=== PATIENT | female | born 1950 | race Caucasian/White ===

== ENCOUNTER 2019-09-30 11:12 | Outpatient (CLI) | payer MEDICARE, SELFPAY ==
--- NOTE | 2019-10-03 17:26 | ONC FU_ITS ---
Dr. Campbell Patient Follow-Up Note Patient: Corine Colon Unit #: [id number]: 1950 Dicatated By: Petr Campbell M.D.Date of Visit:Sep 30, 2019 Onc Med Follow-up/Prog Note Chief Complaint: Pulmonary embolism. History of Present Illness: This is a 69 year-old woman who had of a major episode of pulmonary embolism. On 2017 she had presented to the emergency room at [facility] with fatigue, shortness of breath, and chest pain. In retrospect, she believes the symptoms had worsened gradually over a period of several months. In any case, her chest x-ray showed findings which were worrisome for possible aneurysm of the descending thoracic aorta. A subsequent CT angiogram of the chest showed evidence of acute pulmonary embolism involving all lobes of the lungs. There was evidence of associated right heart strain. The descending thoracic aorta was noted to be tortuous but without evidence of aortic aneurysm. She began anticoagulation with Lovenox and she was then transferred to [facility] for admission. Her further evaluation included echocardiogram which showed normal left ventricular size and systolic function with estimated ejection fraction 55%. There was grade 1/4 diastolic dysfunction. There was mildly dilated right atrium and right ventricle with slightly diminished right internal ejection fraction. There was evidence of pulmonary hypertension with estimated pulmonary artery peak systolic pressure 42 mmHg. Bilateral lower extremity venous Doppler studies showed no evidence of deep vein thrombosis. She improved clinically on Lovenox and she was discharged home on a apixaban 10 mg twice a day, subsequently decreased to 5 mg twice a day. Her anticoagulation was subsequently transitioned to rivaroxaban 20 mg daily. I had seen her initially on 03/20/2018. In reviewing her history, she had no identifiable risk factors for thromboembolism. In the setting of an unprovoked episode of major thromboembolism, I had recommended that she continue long-term anticoagulation. She was very interested in pursuing further evaluation for any possible underlying cause for the thrombosis. As such, I did order a thrombophilia evaluation, which was unrevealing. A repeat CT pulmonary angiogram on 05/31/2018 showed only a trace of old pulmonary emboli within the peripheral pulmonary arterial tree to the superior segment of the right lower lobe. There were no apparent new emboli noted. With that study, I had also intended to include the abdomen/pelvis to scan for possible underlying malignancy, but for some reason that didn't get ordered. As of her follow-up visit on 07/02/2018, she appeared stable clinically. She continued anticoagulation with rivaroxaban 20 mg daily. Her other medical illnesses have been limited to hypertension and degenerative arthritis. She underwent right total hip arthroplasty in March 2019. She had no complications with that procedure. She has only a minimal prior smoking history. She quit in 1970. She is seen for a follow-up visit. She has had somewhat limited activity following her hip surgery, but it is getting better. She is planning to have her left hip replaced sometime this year. Her ECOG score is 1. She has good appetite. She has gained weight. She does not have fever. She occasionally has hot flashes at night. She reports having occasional cough. She has no shortness of breath or chest pain. She has no GI/ complaints other than she has been voiding a little more frequently. She has had a good outcome with her right hip surgery. She does have pain in her left hip, she also has some back pain. She does not complain of headache. She has some orthostatic lightheadedness. She has had some numbness in her right hand. She indicates that she recently suffered a mild concussion from a horse related injury. She has had no adverse effects from that. Medications: Xarelto 1 Tablet (of 20 mg) Oral daily Allergies: perfumes Review of Systems: Constitutional - She generally feels good. Her energy is better, but she still has restricted activity. She is able to do light work in and around the house. Appetite is good and her weight is up about 6 pounds. No fever. She has occasional hot flashes at night. ECOG score is 1, ENMT - She has seasonal allergies. No mouth sores. No sore throat or difficulty swallowing, Hematologic/Lymphatic - No abnormal bruising or bleeding, Respiratory - No shortness of breath. No cough. No pleuritic pain or hemoptysis, Cardiovascular - No angina pain. No palpitations, Gastrointestinal - No nausea or vomiting. No heartburn or acid reflux. No diarrhea or constipation. No blood in the stool or black stools, Genitourinary (F) - No dysuria or hematuria. She has urinary frequency during the day. No urgency or incontinence, Musculoskeletal - She has left hip and lower back pain, which is chronic for her. She is planning to have left hip replacement sometime this year, Integumentary - No skin complications, Neurologic - No headache. She has dizziness with positional changes. She has numbness and tingling in her right hand, which she attributes to carpal tunnel. She recently suffered a mild concussion. Those symptoms have completely resolved. She has no other focal neurologic symptoms, Psychiatric - No anxiety or depression. No insomnia. Vital Signs: Performed on Sep 30, 2019 10:31 Height - 65.00 in Weight - 167 lbs (HIGH) BSA - 1.83 sq.m BMI - 27.79 Temperature - 97.7 F (LOW) Pulse - 62 /min Respiration - 15 /min BP - 140/80 mm(hg) O2 Sat - 98 % Pain - 3 Physical Examination: Constitutional - She looks good generally, Eyes - Sclerae nonicteric. Conjunctivae clear, ENMT - No lesions noted in the oral cavity, Hematologic/Lymphatic - No cervical, clavicular, or axillary adenopathy, Respiratory - Lungs are clear with good air movement bilaterally, Cardiovascular - Heart rhythm is regular. There is no murmur, gallop, or rub noted, Abdomen - Soft and non-tender. Liver and spleen are not enlarged. There is no abdominal mass or ascites noted and there is no inguinal adenopathy, Extremities - No edema, Neurologic - No focal neurologic deficits noted. Impression: 1. Patient with major episode of pulmonary embolism diagnosed in 03/07/2018. There was associated right heart strain. This appears to have been unprovoked. 2. She has had significant improvement on anticoagulation, currently with rivaroxaban. Her repeat CT pulmonary angiogram showed only minimal residual emboli. 3. Her thrombophilia evaluation was unrevealing. 4. She appears to be mildly hypertensive, and she has been having occasional episodes of fast heart rate. 5. She has underlying degenerative arthritis. She has continued anticoagulation with rivaroxaban 20 mg daily. In March she underwent right total hip arthroplasty. She had no complications with that procedure. Overall, she has been doing well clinically. Plan: With unprovoked thromboembolism, she is advised to continue long-term anticoagulation. We discussed whether or not to reduce the rivaroxaban to a maintenance dosage. At least for the time being, if she is having no adverse effects with the rivaroxaban, I would recommend continuing it at the full dosage of 20 mg daily. She can call if she is having any problems with it. Otherwise I will just plan to see her for a follow-up visit in 1 year. Signed By: Petr Campbell M.D. <<Signature on File>>
== END 2019-09-30 11:13 | disposition home or self-care (01) ==
LOC: ONCMED 11:12
PROVIDERS: PCP Physician Assistant Medical; Visit Provider Internal Medicine Medical Oncology
DX: I26.09 Other pulmonary embolism with acute cor pulmonale (principal); Z79.01 Long term (current) use of anticoagulants; M19.90 Unspecified osteoarthritis, unspecified site
CPT/HCPCS: 99214

== ENCOUNTER 2020-03-01 15:08 | Outpatient (CLI) | payer MEDICARE, SELFPAY ==
--- NOTE | 2020-03-01 15:22 | XR_ITS ---
WS: [id number] Exam: XR DEXA axial skeleton* [id number] Date/Time of Exam: 03/01/2020 3:25 PM Reason For Exam: ASYMPTOMATIC MENOPAUSAL STATE DEXA BONE DENSITOMETRY NanoVasc The L1-L4 bone mineral density measures 1.293 g/cm2. This corresponds to a T score of 0.9 and Z score of 2.5. The T score bone mineral density for the radius is 0.0, Z score is 1.8. XR/XR DEXA axial skeleton* [id number] IMPRESSION: Bone mineral density lies in the normal range. No osteopenia is observed at th is time. Refer to detailed summary.
== END 2020-03-01 15:09 | disposition home or self-care (01) ==
PROVIDERS: PCP Physician Assistant Medical; Visit Provider Family Medicine
DX: Z78.0 Asymptomatic menopausal state (principal)
CPT/HCPCS: 77080

== ENCOUNTER 2020-09-28 10:00 | Outpatient (CLI) | payer MEDICARE, SELFPAY ==
--- NOTE | 2020-10-01 07:03 | ONC FU_ITS ---
Dr. Campbell Patient Follow-Up Note Patient: Corine Colon Unit #: [id number]: 1950 Dicatated By: Petr Campbell M.D.Date of Visit:Sep 28, 2020 Onc Med Follow-up/Prog Note Chief Complaint: Pulmonary embolism. History of Present Illness: This is a 70 year-old woman who had of a major episode of pulmonary embolism. On 2017 she had presented to the emergency room at [facility] with fatigue, shortness of breath, and chest pain. In retrospect, she believes the symptoms had worsened gradually over a period of several months. In any case, her chest x-ray showed findings which were worrisome for possible aneurysm of the descending thoracic aorta. A subsequent CT angiogram of the chest showed evidence of acute pulmonary embolism involving all lobes of the lungs. There was evidence of associated right heart strain. The descending thoracic aorta was noted to be tortuous but without evidence of aortic aneurysm. She began anticoagulation with Lovenox and she was then transferred to [facility] for admission. Her further evaluation included echocardiogram which showed normal left ventricular size and systolic function with estimated ejection fraction 55%. There was grade 1/4 diastolic dysfunction. There was mildly dilated right atrium and right ventricle with slightly diminished right internal ejection fraction. There was evidence of pulmonary hypertension with estimated pulmonary artery peak systolic pressure 42 mmHg. Bilateral lower extremity venous Doppler studies showed no evidence of deep vein thrombosis. She improved clinically on Lovenox and she was discharged home on a apixaban 10 mg twice a day, subsequently decreased to 5 mg twice a day. Her anticoagulation was subsequently transitioned to rivaroxaban 20 mg daily. I had seen her initially on 03/20/2018. In reviewing her history, she had no identifiable risk factors for thromboembolism. In the setting of an unprovoked episode of major thromboembolism, I had recommended that she continue long-term anticoagulation. She was very interested in pursuing further evaluation for any possible underlying cause for the thrombosis. As such, I did order a thrombophilia evaluation, which was unrevealing. A repeat CT pulmonary angiogram on 05/31/2018 showed only a trace of old pulmonary emboli within the peripheral pulmonary arterial tree to the superior segment of the right lower lobe. There were no apparent new emboli noted. With that study, I had also intended to include the abdomen/pelvis to scan for possible underlying malignancy, but for some reason that didn't get ordered. As of her follow-up visit on 07/02/2018, she appeared stable clinically. She continued anticoagulation with rivaroxaban 20 mg daily. Her other medical illnesses have been limited to hypertension and degenerative arthritis. She underwent right total hip arthroplasty in March 2019. She had no complications with that procedure. She has only a minimal prior smoking history. She quit in 1970. She is seen for a follow-up visit. She has been feeling good generally. Some days she does feel tired, but she has normal activity. ECOG score 0. She has good appetite. She has no fever, night sweats, or hot flashes. She has some allergy related symptoms, mainly sneezing. She has no shortness of breath, cough, or chest pain. Recently she has started having indigestion. She says she has been prone to having heartburn her entire life. Bowel function has been okay. She has frequent urination. She says her joints have been pretty good. She has arthritis, but not much pain. She does not complain of headache or dizziness. She has some carpal tunnel symptoms in her right hand, which she manages with the brace at night. She has no other focal neurologic symptoms. Medications: Xarelto 1 Tablet (of 20 mg) Oral daily Allergies: perfumes Vital Signs: Performed on Sep 28, 2020 09:58 Height - 65.00 in Weight - 165 lbs (LOW) BSA - 1.82 sq.m BMI - 27.46 Temperature - 98.2 F (LOW) Pulse - 65 /min Respiration - 16 /min BP - 150/70 mm(hg) (HIGH) O2 Sat - 97 % Pain - 0 Physical Examination: Constitutional - She looks good generally, Eyes - Sclerae nonicteric. Conjunctivae clear, ENMT - No lesions noted in the oral cavity, Hematologic/Lymphatic - No cervical, clavicular, or axillary adenopathy, Respiratory - Lungs are clear with good air movement bilaterally, Cardiovascular - Heart rhythm is regular. There is no murmur, gallop, or rub noted, Abdomen - Soft. Liver and spleen are not enlarged. There is no abdominal mass or ascites noted and there is no inguinal adenopathy, Extremities - No edema, Neurologic - No focal neurologic deficits noted. Problem List: 1. Patient with major episode of pulmonary embolism diagnosed in 03/07/2018. There was associated right heart strain. This appeared to have been unprovoked. 2. Degenerative arthritis. 3. GERD. Problems Addressed with this Encounter and Plan: 1. Patient with major episode of pulmonary embolism diagnosed in 03/07/2018. There was associated right heart strain. This appeared to have been unprovoked. She has had significant improvement on anticoagulation, currently with rivaroxaban. Her repeat CT pulmonary angiogram showed only minimal residual emboli. Her thrombophilia evaluation was unrevealing. With unprovoked thromboembolism, she was advised to continue long-term anticoagulation. During follow-up she has been doing well clinically, thus far with no evidence for any recurrence of thromboembolism. As it has now been more than 2 years since the initial episode, I talked her about the possibility of transitioning to the maintenance dose of rivaroxaban at 10 mg daily. She is agreeable only we will make the change with her next prescription refill. I will just plan a follow-up visit in 1 year. 2. She recently has had recurrence of GERD symptoms. As she is on chronic anticoagulation, I will have her start famotidine 20 mg twice daily. If symptoms improve she can reduce to 20 mg daily. She is to let me know if it is not getting better. Signed By: Petr Campbell M.D. <<Signature on File>>
== END 2020-09-28 10:01 | disposition home or self-care (01) ==
PROVIDERS: PCP Physician Assistant Medical; Visit Provider Internal Medicine Medical Oncology
DX: I26.99 Other pulmonary embolism without acute cor pulmonale (principal); M19.90 Unspecified osteoarthritis, unspecified site; K21.9 Gastro-esophageal reflux disease without esophagitis; Z79.01 Long term (current) use of anticoagulants; Z79.899 Other long term (current) drug therapy
CPT/HCPCS: 99214

== ENCOUNTER 2021-11-21 14:21 | Oncology outpatient (recurring) (ONCR) | payer MEDICARE, SELFPAY | END 2021-12-14 23:59 | disposition home or self-care (01) | PROVIDERS: PCP Physician Assistant Medical; Visit Provider Internal Medicine Medical Oncology | DX: Z09 Encounter for follow-up examination after completed treatment for conditions other than malignant neoplasm (principal); Z86.718 Personal history of other venous thrombosis and embolism; Z79.01 Long term (current) use of anticoagulants | CPT/HCPCS: 99214; G0463 ==

== ENCOUNTER 2022-11-03 12:11 | Outpatient (CLI) | payer MEDICARE, SELFPAY ==
--- NOTE | 2022-11-03 12:20 | MM_ITS ---
WS: [id number] VIEWS: MLO and CC views both breasts. 3D digital tomosynthesis is also included in this exam. Comparison made with prior exam of 02/12/2019. Findings: There was no sign of mass, architectural distortion or suspicious calcification in either breast. Th e breasts are heterogeneously dense which may obscure small masses MM/[place] [id number] Impression: BI-RADS: 2-Benign finding. FOLLOW-UP: 1 Year Follow-up This mammogram was also analyzed by the Computer Aided Detection System R2 Imag e Utility Sales Representative.
== END 2022-11-03 12:12 | disposition home or self-care (01) ==
PROVIDERS: PCP Nurse Practitioner; Visit Provider Family Medicine
DX: Z12.31 Encounter for screening mammogram for malignant neoplasm of breast (principal)
CPT/HCPCS: 77063; 77067

== ENCOUNTER 2022-12-25 14:53 | Oncology outpatient (recurring) (ONCR) | payer MEDICARE, SELFPAY | END 2023-01-13 23:59 | disposition home or self-care (01) | LOC: ONCMED 14:54 | PROVIDERS: PCP Nurse Practitioner; Visit Provider Internal Medicine Medical Oncology | DX: I26.09 Other pulmonary embolism with acute cor pulmonale (principal); Z79.01 Long term (current) use of anticoagulants; K21.9 Gastro-esophageal reflux disease without esophagitis | CPT/HCPCS: 99214 ==

== ENCOUNTER → 2023-04-25 13:21 | Outpatient (BNVA) | payer MEDICARE, SELFPAY | PROVIDERS: PCP Nurse Practitioner Family; Visit Provider Nurse Practitioner Family | DX: Z86.711 Personal history of pulmonary embolism (principal); R06.02 Shortness of breath; R53.83 Other fatigue; Z79.899 Other long term (current) drug therapy; E55.9 Vitamin D deficiency, unspecified; Z13.6 Encounter for screening for cardiovascular disorders; I10 Essential (primary) hypertension | CPT/HCPCS: 80053; 80061; 81003; 82306; 83036; 83880; 84443; 85025 ==

== ENCOUNTER 2023-05-14 14:17 | Outpatient (CLI) | payer MEDICARE, SELFPAY ==
--- NOTE | 2023-05-14 14:30 | USCV_ITS ---
Corine Colon Age: 72 Gender: F : 1950 Exam Date: 05/14/2023 14:36 Ordering Phys: INOCENCIO Dc APRN TRICOT KNITTER Technologist: PAULINE Exam Location: [facility] [place] Indication: History of PE, SOB, fatigue, BP: 152 / 80 HR: 57 Rhythm: Sinus Technical Quality: Good MEASUREMENTS (Male / Female) Normal Values 2D ECHO LV Diastolic Diameter PLAX 5.1 cm 4.2 - 5.9 / 3.9 - 5.3 cm LV Systolic Diameter PLAX 2.9 cm IVS Diastolic Thickness 1.1 cm 0.6 - 1.0 / 0.6 - 0.9 cm IVS Systolic Thickness 0.9 cm LVPW Diastolic Thickness 0.8 cm 0.6 - 1.0 / 0.6 - 0.9 cm LVPW Systolic Thickness 1.4 cm LVOT Diameter 2.0 cm LV Ejection Fraction 2D Teich 74.9 % LV Ejection Fraction MOD 2C 75.9 % LV Ejection Fraction 2C AL 74.7 % LA Diameter 3.2 cm LA Width 4.3 cm LA Height 4.9 cm RA Width 3.6 cm RA Height 4.7 cm Aorta at Sinotubular Diameter 3.0 cm IVC Diameter 1.6 cm M-MODE Aortic Annulus Diameter 3.0 cm LA Ao Ratio MM 1.2 MV E Point Septal Separation 0.5 cm DOPPLER AV Peak Velocity 104.0 cm/s LVOT Peak Velocity 105.0 cm/s AV Area Cont Eq vti 3.1 cm squared AV Area Cont Eq pk 3.2 cm squared MV Peak Velocity 110.0 cm/s MV Area PHT 3.3 cm squared Mitral E to A Ratio 0.8 MV E' Velocity 41.5 cm/s Mitral E to MV E' Ratio 12.3 Mitral E to LV E' Lateral Ratio 9.6 Mitral E to LV E' Septal Ratio 17.1 TR Peak Velocity 183.5 cm/s TR Peak Gradient 13.5 mmHg Right Atrial Pressure 5.0 mmHg Pulmonary Artery Systolic Pressu 18.5 mmHg PV Peak Velocity 122.0 cm/s RV Acceleration Time 0.2 s RV Ejection Time 0.4 s RV AcT/ET 0.5 FINDINGS Left Ventricle Left ventricle is normal in size. LV systolic function is normal with EF of 55-60%. No regional wall motion abnormalities. Grade 1 diastolic function. Right Ventricle Normal in size and function Right Atrium Normal in size Left Atrium Dilated Mitral Valve Structurally normal mitral valve. Trace mitral regurgitation. Aortic Valve Structurally normal aortic valve. No significant stenosis or regurgitation. Tricuspid Valve Mild tricuspid regurgitation. Pulmonary artery systolic pressure is noraml Pulmonic Valve Not well visualized. Mild pulmonic regurgitation. Pericardium Normal Aorta Normal in size IVC Appears to be normal CONCLUSIONS LV systolic function is normal with EF of 55-60%. Grade 1 diastolic dysfunction Left atrium is dilated Trace mitral regurgitation Mild tricuspid regurgitation Mild pulmonic regurgitation Compared to prior echocardiogram from 2018, no significant changes are seen Wilbert Suárez MD (Electronically Signed) Final Date: 18 May 2023 17:11 S
== END 2023-05-14 14:18 | disposition home or self-care (01) ==
LOC: RAD 14:17
PROVIDERS: PCP Nurse Practitioner Family; Visit Provider Nurse Practitioner Family
DX: Z86.711 Personal history of pulmonary embolism (principal); R06.02 Shortness of breath; R53.83 Other fatigue; I37.1 Nonrheumatic pulmonary valve insufficiency; I07.1 Rheumatic tricuspid insufficiency
CPT/HCPCS: 93306

== ENCOUNTER 2023-11-07 13:51 | Outpatient (CLI) | payer MEDICARE, SELFPAY ==
--- NOTE | 2023-11-07 14:00 | XR_ITS ---
WS: [id number] SCREENING DEXA SCAN [employer] CLINICAL INFORMATION: Z78.0 - Asymptomatic menopausal state COMPARISON: 2019 FINDINGS: The L1-L4 bone mineral density measures 1.3. This corresponds to a T score score of 1.3 and Z score o f 2.6. Left forearm bone mineral density measures 0.766. This corresponds to a T score of -1.3 and Z score o f 0.9. XR/XR DEXA axial skeleton* [id number] IMPRESSION: Normal bone mineralization lumbar spine. Osteopenia LEFT forearm. Bone mineral density lumbar spine increased 2.6% Bone mineral density LEFT forearm decreased -12.6%
--- NOTE | 2023-11-07 14:30 | MM_ITS ---
WS: [id number] BILATERAL 3D TOMOSYNTHESIS DIGITAL SCREENING MAMMOGRAPHY WITH CAD CLINICAL INFORMATION: Z12.31 - Encounter for screening mammogram for malignant ... HISTORY: Screening mammogram. No current complaints. COMPARISON: 2022 TECHNIQUE: Bilateral CC and MLO views. FINDINGS: Scattered fibroglandular densities bilaterally. No suspicious focal mass, asymmetry, calcifications, or architectural distortion. No evidence of malignancy. Few incidental punctate calcifications MM/[place] [id number] IMPRESSION: BI-RADS: 2-Benign FOLLOW UP: 1 Year Follow-up Recommend return to annual screening mammography.
== END 2023-11-07 13:52 | disposition home or self-care (01) ==
LOC: RAD 13:51
PROVIDERS: PCP Nurse Practitioner Family; Visit Provider Nurse Practitioner Family
DX: Z78.0 Asymptomatic menopausal state; M85.832 Other specified disorders of bone density and structure, left forearm; Z12.31 Encounter for screening mammogram for malignant neoplasm of breast; R92.323 Mammographic fibroglandular density, bilateral breasts; R92.1 Mammographic calcification found on diagnostic imaging of breast
CPT/HCPCS: 77063; 77067; 77080

== ENCOUNTER → 2024-06-16 10:44 | Outpatient (BNVA) | payer MEDICARE, SELFPAY | PROVIDERS: PCP Nurse Practitioner Family; Visit Provider Nurse Practitioner Family | DX: I10 Essential (primary) hypertension (principal); Z79.899 Other long term (current) drug therapy; E55.9 Vitamin D deficiency, unspecified; M85.80 Other specified disorders of bone density and structure, unspecified site; Z78.0 Asymptomatic menopausal state; R07.89 Other chest pain | CPT/HCPCS: 80053; 80061; 81003; 82306; 84443; 85025 ==

== ENCOUNTER → 2024-08-27 13:46 | Outpatient (BNVA) | payer MEDICARE, SELFPAY | PROVIDERS: PCP Nurse Practitioner Family; Visit Provider Internal Medicine | DX: I38 Endocarditis, valve unspecified (principal); I10 Essential (primary) hypertension; Z79.01 Long term (current) use of anticoagulants; Z86.711 Personal history of pulmonary embolism; Z87.891 Personal history of nicotine dependence; R07.9 Chest pain, unspecified; R01.1 Cardiac murmur, unspecified | CPT/HCPCS: 93005; 99204 ==

== ENCOUNTER 2024-10-09 12:40 | Outpatient (CLI) | payer MEDICARE, SELFPAY ==
--- NOTE | 2024-10-09 12:45 | USCV_ITS ---
Corine Colon Age: 74 Gender: F : 1950 Exam Date: 10/09/2024 13:11 Ordering Phys: Wilbert Suárez M.D ([email or web address]) Technologist: BRIGIDO Exam Location: [facility] [place] Indication: Murmur BP: 160 / 100 HR: 58 Rhythm: Sinus Technical Quality: Adequate MEASUREMENTS (Male / Female) Normal Values 2D ECHO LV Diastolic Diameter PLAX 4.4 cm 4.2 - 5.9 / 3.9 - 5.3 cm IVS Diastolic Thickness 1.4 cm 0.6 - 1.0 / 0.6 - 0.9 cm IVS Systolic Thickness 1.8 cm LVPW Diastolic Thickness 1.2 cm 0.6 - 1.0 / 0.6 - 0.9 cm LVPW Systolic Thickness 2.0 cm LVOT Diameter 2.0 cm LV Ejection Fraction 2D Teich 56.8 % LV Ejection Fraction MOD 4C 58.0 % LV Ejection Fraction MOD 2C 63.2 % LV Ejection Fraction 2C AL 64.3 % LA Diameter 3.9 cm RA Systolic Volume 4C AL 53.6 ml RA Systolic Volume 4C MOD 50.4 ml LA Sys Volume AL 40.3 cm cubed LA Sys Volume Index AL 21.2 cm cubed/m squared Aorta at Sinotubular Diameter 2.7 cm IVC Diameter 2.0 cm M-MODE LA Ao Ratio MM 1.3 AV Cusp Separation MM 1.7 cm DOPPLER AV Peak Velocity 139.0 cm/s LVOT Peak Velocity 114.0 cm/s AV Area Cont Eq vti 2.7 cm squared AV Area Cont Eq pk 2.5 cm squared MV Peak Velocity 95.0 cm/s MV Area PHT 3.4 cm squared Mitral E to A Ratio 0.9 TR Peak Velocity 221.0 cm/s TR Peak Gradient 19.5 mmHg TV Peak E Velocity 71.0 cm/s PV Peak Velocity 93.0 cm/s FINDINGS Left Ventricle Left ventricle is normal in size. LV systolic function is normal with EF 55-60%. No regional wall motion abnormalities are seen. Grade 1 diastolic dysfunction Right Ventricle Normal in size and function Right Atrium Normal in size Left Atrium Normal in size Mitral Valve Mild mitral annular calcification. Trace mitral regurgitation. Aortic Valve Aortic valve is thickened. No significant stenosis or regurgitation. Tricuspid Valve Mild tricuspid regurgitation. Pulmonary artery systolic pressure is normal. Pulmonic Valve Not well-visualized Pericardium Normal Aorta Normal in size IVC Appears to be normal CONCLUSIONS LV systolic function is normal with EF of 55 to 60%. Grade 1 diastolic dysfunction. Trace mitral regurgitation. Mild tricuspid regurgitation Wilbert Suárez MD (Electronically Signed) Final Date: 24 October 2024 11:51 S
== END 2024-10-09 12:41 | disposition home or self-care (01) ==
LOC: RAD 12:42
PROVIDERS: PCP Nurse Practitioner Family; Visit Provider Internal Medicine
DX: R01.1 Cardiac murmur, unspecified (principal); R93.1 Abnormal findings on diagnostic imaging of heart and coronary circulation; I34.81 Nonrheumatic mitral (valve) annulus calcification; I35.8 Other nonrheumatic aortic valve disorders; I07.1 Rheumatic tricuspid insufficiency
CPT/HCPCS: 93306

== ENCOUNTER 2024-12-23 14:31 | Outpatient (CLI) | payer MEDICARE, SELFPAY ==
--- NOTE | 2024-12-23 14:39 | MM_ITS ---
WS: [id number] BILATERAL 3D TOMOSYNTHESIS DIGITAL SCREENING MAMMOGRAPHY WITH CAD CLINICAL INFORMATION: Z12.31 - Encounter for screening mammogram for malignant ... HISTORY: Screening mammogram. No current complaints. COMPARISON: 2023 TECHNIQUE: Bilateral CC and MLO views. FINDINGS: Scattered fibroglandular densities bilaterally. No suspicious focal mass, asymmetry, calcifications, or architectural distortion. No evidence of malignancy. A few incidental punctate lucent centered calcifications LEFT breast. Vascular calcification. MM/MM [facility] tomosynthesis [id number] IMPRESSION: DENSITY: There are scattered areas of fibroglandular density. BI-RADS: 2 - Benign. FOLLOW UP: 1 Year Follow-up Recommend return to annual screening mammography.
== END 2024-12-23 14:32 | disposition home or self-care (01) ==
LOC: RAD 14:33
PROVIDERS: PCP Nurse Practitioner Family; Visit Provider Nurse Practitioner Family
DX: Z12.31 Encounter for screening mammogram for malignant neoplasm of breast (principal); R92.323 Mammographic fibroglandular density, bilateral breasts; R92.1 Mammographic calcification found on diagnostic imaging of breast
CPT/HCPCS: 77063; 77067

== ENCOUNTER → 2025-02-25 13:09 | Outpatient (BNVA) | payer MEDICARE, SELFPAY | PROVIDERS: PCP Nurse Practitioner Family; Visit Provider Internal Medicine | DX: I10 Essential (primary) hypertension (principal); Z86.711 Personal history of pulmonary embolism; I38 Endocarditis, valve unspecified | CPT/HCPCS: 99213 ==